=== PATIENT | female | born 1960 | race Caucasian/White ===

== ENCOUNTER → 2020-03-01 | Outpatient (CLI) | payer OTHER ==
[~2020-03-01] MED LIST: LOSARTAN-HCTZ1 EAC3; NORCO 5-325 TA1 EACH PO; ZPAK PO
== END ==
LOC: M.CT 08:00
PROVIDERS: ATTEND Nurse Practitioner Family
DX: Z13.6 Encounter for screening for cardiovascular disorders (principal)